=== PATIENT | female | born 1975 | race Caucasian/White ===

== ENCOUNTER 2019-10-15 13:00 | Emergency (ER) | payer OTHER ==
[2019-10-15 13:41] LABS: RAPID STREP SCREEN Negative (Negative)
--- NOTE | 2019-10-15 14:16 | ED Physician Documentation ---
PD HPI PED ILLNESS - Stated complaint Stated Complaint: SORE THROAT - Chief complaint Chief Complaint: Heent - History obtained from History obtained from: Patient - History of Present Illness Timing - onset: Other (44-year-old woman with lupus on hydroxychloroquine presents with a 2-day illness with severe sore throat, left ear pain, fever. Minimal cough. Her grandson was sick earlier this week with confirmed positive strep throat. No shortness of breath. She also has myalgias and low back pain.) Review of Systems Constitutional: reports: Fever, Chills, Myalgias, Fatigue. denies: Weight Loss, Sweats Ears: reports: Ear pain Nose: denies: Rhinorrhea / runny nose Throat: reports: Sore throat GI: denies: Vomiting, Diarrhea PD PAST MEDICAL HISTORY - Present Medications Home Medications: Ambulatory Orders Medication Instructions Recorded Confirmed Amoxicillin 500 mg PO TID #30 capsule 10/15/19 Hydrocodone/Acetaminophen 1 - 2 each PO Q6H PRN #10 tablet 10/15/19 [Hydrocodon-Acetaminophen 5-325] Hydroxychloroquine [Plaquenil] 200 mg PO DAILY 10/15/19 10/15/19 - Allergies Allergies/Adverse Reactions: Allergies Allergy/AdvReac Type Severity Reaction Status Date / Time No Known Drug Allergies Allergy Verified 10/15/19 13:10 PD ED PE NORMAL - Vitals Vital signs reviewed: Yes - General General: Alert and oriented X 3, No acute distress - HEENT HEENT: Other (Left TM is retracted with maxillary sinus tenderness on the left. Oropharynx is mildly red without swelling or exudates, no adenopathy. Supple neck.) - Cardiac Cardiac: RRR, No murmur - Respiratory Respiratory: No respiratory distress, Clear bilaterally - Abdomen Abdomen: Non tender - Back Back: No CVA TTP, No spinal TTP - Derm Derm: Normal color, Warm and dry - Extremities Extremities: No edema, No calf tenderness / cord - Neuro Neuro: Alert and oriented X 3, Normal speech Results - Vitals Vitals: Vital Signs - 24 hr 10/15/19 10/15/19 13:08 14:21 Temperature 37.1 C 36.8 C Heart Rate 87 86 Respiratory 16 18 Rate Blood Pressure 94/67 101/67 O2 Saturation 99 98 Oxygen O2 Source Room air - Labs Labs: Laboratory Tests 10/15/19 13:11 Group A Strep Rapid Negative PD MEDICAL DECISION MAKING - ED course ED course: 44-year-old woman with URI, most consistent with sinusitis and given her online underlying immunocompromised state seems reasonable to administer antibiotics for same. Departure - Departure Disposition: 01 Home, Self Care Clinical Impression: Sinusitis Qualifiers: Sinusitis location: maxillary Chronicity: acute Recurrence: non-recurrent Qualified Code(s): J01.00 - Acute maxillary sinusitis, unspecified Condition: Good Record reviewed to determine appropriate education?: Yes Instructions: ED Sinusitis Abx Tx Prescriptions: Amoxicillin 500 mg PO TID #30 capsule Hydrocodone/Acetaminophen [Hydrocodon-Acetaminophen 5-325] 1 - 2 each PO Q6H PRN #10 tablet PRN Reason: pain Comments: Call your doctor to arrange a follow-up appointment, make the next available appointment. In the interim, return anytime if worse or if new symptoms develop. Do not drink or drive while taking narcotic pain medication. Note that many narcotic pain relievers also contain Tylenol/acetaminophen. Please ensure that your total dose of acetaminophen from all sources does not exceed 3 g (3000 mg) per day. You may get constipated while on this medication. Take a stool softener such as Colace twice a day while you are on it. Also add an [id number] laxative such as senna or MiraLAX on any day that you do not have a bowel movement. If you received a narcotic pain medication or sedative while in the emergency department, do not drive for the next 24 hours. Discharge Date/Time: 10/15/19 14:45
[2019-10-15 14:22] VITALS: BP 101/67
== END 2019-10-15 14:45 | disposition home or self-care (01) ==
LOC: ED 13:00
DX: J01.00 Acute maxillary sinusitis, unspecified (principal)
CPT/HCPCS: 87070; 87077; 87430; 99283; 99284

== ENCOUNTER 2020-09-29 12:30 | Emergency (ER) | payer MEDICAID, OTHER ==
[2020-09-29] MEDS ORDERED: SODIUM CHLORIDE 0.9% 1,000 ML IV STA (13:00)
[2020-09-29] MEDS ORDERED: HYDROmorphone 1 MG/ML CARPUJECT IVP STA (13:00)
--- NOTE | 2020-09-29 13:03 | ED Physician Documentation ---
History of Present Illness - Stated complaint Stated Complaint: LT SHOULDER PX - Chief complaint Chief Complaint: General - Additonal information Additional information: 45-year-old female presents the emergency department for evaluation of acute sharp chest pain that woke her from sleep this morning. It radiates to her posterior back. She reports that she has had similar chest pain in the past with an elevated blood pressure. She has no cough or fevers. No recent illness. she appears very uncomfortable in bed. Denies any hx of CAD, CVA She moved to [facility] about 3 weeks ago from [facility]. While there she reports that they had begun to evaluate her for high blood pressure and she was prescribed a blood pressure medication but took it only for a week before she moved. She also reports a history of lupus for which she was getting injections into the top of her head monthly. Patient endorses daily cannabis. She denies alcohol or drug use otherwise. She denies any unilateral leg swelling, history of blood clots or cancer. Review of Systems Constitutional: denies: Fever, Chills Eyes: reports: Reviewed and negative Ears: reports: Reviewed and negative Nose: reports: Reviewed and negative Throat: reports: Reviewed and negative Cardiac: reports: Chest pain / pressure. denies: Palpitations, Pedal edema, Calf pain Respiratory: denies: Dyspnea, Cough, Hemoptysis GI: denies: Abdominal Pain, Nausea, Vomiting : denies: Dysuria, Frequency, Hesitancy Skin: denies: Rash, Lesions Musculoskeletal: denies: Neck pain, Back pain, Extremity pain Neurologic: denies: Generalized weakness, Focal weakness PD PAST MEDICAL HISTORY - Past Medical History Cardiovascular: Hypertension Respiratory: Pneumonia Neuro: Migraines Endocrine/Autoimmune: Systemic lupus erythematosus GI: None LAB TESTER: None : None HEENT: None Psych: None Musculoskeletal: None Derm: Other - Past Surgical History Past Surgical History: No - Present Medications Home Medications: Ambulatory Orders Medication Instructions Recorded Confirmed Ibuprofen [Motrin] 600 mg PO Q6H PRN #30 tab 09/29/20 - Allergies Allergies/Adverse Reactions: Allergies Allergy/AdvReac Type Severity Reaction Status Date / Time No Known Drug Allergies Allergy Verified 09/29/20 12:41 - Social History Does the pt smoke?: No Smoking Status: Never smoker Does the pt drink ETOH?: No Does the pt have substance abuse?: No - Immunizations Immunizations are current?: Yes - POLST Patient has POLST: No PD ED PE EXPANDED - General General: Alert, In Pain, In distress - Neck Neck: Supple w/out meningeal sx. No: Adenopathy - Cardiac Cardiac: Regular Rate, Regular Rhythm, Radial strong equal, Pedal strong equal, Cap refill < 2 sec. No: Murmur Present - Respiratory Respiratory: Clear to ausultation melodie, Other (pleuritic pain with inspiration). No: Distress, Labored - Abdomen Abdomen: Normal Bowel sounds. No: Tender to palpation - Derm Derm: Normal color, Warm and dry. No: Rash - Extremities Extremities: Normal. No: Deformity, Tenderness, Pedal edema bilateral, Right calf TTP/cord, Left calf TTP/cord - Neuro Neuro: Alert and Oriented X 3, CNII-XII intact - GCS Eye Opening: Spontaneous Motor: Obeys Commands Verbal: Oriented Total: 15 Results - Vitals Vitals: Vital Signs - 24 hr 09/29/20 09/29/20 09/29/20 12:39 14:48 15:26 Temperature 37.0 C Heart Rate 84 86 75 Respiratory 18 25 H 23 Rate Blood Pressure 150/111 H 104/62 100/59 L O2 Saturation 99 100 100 Oxygen O2 Source Room air - EKG (time done) 1248 Rate: Rate (enter#) (73) Rhythm: NSR [place]: Normal Intervals: Normal MT QRS: Normal Ischemia: Normal ST segments Computer interpretation: Agree with computer - Labs Labs: Laboratory Tests 09/29/20 09/29/20 09/29/20 13:05 13:10 13:38 WBC 7.1 RBC 4.17 L Hgb 13.7 Hct 40.2 MCV 96.4 MCH 32.9 H MCHC 34.1 RDW 12.0 Plt Count 225 MPV 11.0 H Neut # (Auto) 3.5 Lymph # (Auto) 2.7 [place] # (Auto) 0.6 Eos # (Auto) 0.2 Baso # (Auto) 0.1 Absolute Nucleated RBC 0.00 Nucleated RBC % 0.0 Sodium 138 Potassium 4.0 Chloride 104 Carbon Dioxide 23 Anion Gap 11.0 BUN 9 Creatinine 0.9 Estimated GFR (MDRD) 67 L Glucose 94 Calcium 9.0 Total Bilirubin 0.2 AST 21 ALT 24 Alkaline Phosphatase 58 Troponin I High Sens Total Protein 7.3 Albumin 4.2 Globulin 3.1 Albumin/Globulin Ratio 1.4 Lipase 32 Serum HCG, Qual Urine Color YELLOW Urine Clarity CLEAR Urine pH 6.0 Ur Specific [place] 1.020 Urine Protein NEGATIVE Urine Glucose (UA) NEGATIVE Urine Ketones NEGATIVE Urine Occult Blood NEGATIVE Urine Nitrite NEGATIVE Urine Bilirubin NEGATIVE Urine Urobilinogen 0.2 (NORMAL) Ur Leukocyte Esterase SMALL H Urine RBC 0-5 Urine WBC 0-3 Ur Squamous Epith Cells FEW Squamous Urine Bacteria Rare Ur Microscopic Review INDICATED Urine Culture Comments INDICATED 09/29/20 09/29/20 13:38 13:38 WBC RBC Hgb Hct MCV MCH MCHC RDW Plt Count MPV Neut # (Auto) Lymph # (Auto) [place] # (Auto) Eos # (Auto) Baso # (Auto) Absolute Nucleated RBC Nucleated RBC % Sodium Potassium Chloride Carbon Dioxide Anion Gap BUN Creatinine Estimated GFR (MDRD) Glucose Calcium Total Bilirubin AST ALT Alkaline Phosphatase Troponin I High Sens < 2.3 L Total Protein Albumin Globulin Albumin/Globulin Ratio Lipase Serum HCG, Qual NEGATIVE Urine Color Urine Clarity Urine pH Ur Specific [place] Urine Protein Urine Glucose (UA) Urine Ketones Urine Occult Blood Urine Nitrite Urine Bilirubin Urine Urobilinogen Ur Leukocyte Esterase Urine RBC Urine WBC Ur Squamous Epith Cells Urine Bacteria Ur Microscopic Review Urine Culture Comments - Rads (name of study) CXR Radiology: Final report received (No acute cardiopulmonary process) CT angio Radiology: Final report received (No evidence of pulmonary embolism. No acute consolidation in the lungs to suggest pneumonia. Thoracic aorta is normal in caliber and enhancement. Esophagus is normal in caliber without hiatal hernia.) PD MEDICAL DECISION MAKING - ED course Complexity details: reviewed results, re-evaluated patient, considered differential, d/w patient ED course: 45-year-old female who moved to [facility] about 3 weeks ago from [facility] and has pre-existing history of hypertension as well as lupus and daily tobacco use presents to the emergency department with acute onset pleuritic chest pain that woke her from sleep about 3 AM. Patient denies any cough or fevers chest pain is not exertional. No abdominal pain nausea or diarrhea. On presentation she appeared uncomfortable and had a pain when taking a deep breath however there was no hypoxia. Cardiopulmonary auscultation was u nremarkable. EKG was nonischemic. EKG is not consistent with pericarditis. High-sensitivity troponin negative. Screening chest x-ray unremarkable. However given history of lupus and pleuritic component of this chest pain we did proceed with a CT pulmonary angio that did not show any findings of a pulmonary embolus, pneumonia or aortic dissection. Otherwise screening labs including a CBC shows no leukocytosis. Preserved renal and liver function. Patient had been given some Dilaudid on presentation with moderate relief of the pain. On reassessment I offered 30 mg of Toradol with offered further relief of pain Laboratory findings and CT imaging was discussed with the patient. This time the etiology of her pleuritic chest pain is not clear though I suspect it stems from untreated lupus. Given marked relief of pain with Toradol I will recommend that she take ibuprofen at home few times a day. I have given her the phone number for [facility] to follow-up this ED visit but have made very clear to her it is imperative she is established with a primary doctor to have long-term management of her lupus. Departure - Departure Disposition: Home, Self Care Clinical Impression: Pleuritic chest pain, Lupus Condition: Critical Instructions: ED Chest Pain Atypical Unkn Cause Follow-Up: [facility] [Provider Group] Prescriptions: Ibuprofen [Motrin] 600 mg PO Q6H PRN #30 tab PRN Reason: Pain Comments: Renae you were seen in the emergency department today for pleuritic chest pain. This is chest pain that is worse when you take a deep breath. Because of your history of lupus we did do an EKG and screening lab. There were no worrisome findings with any of that testing. We also did do a CAT scan of your chest to make sure that there was no blood clot in your lungs. The CAT scan of your chest shows no blood clots, no pneumonia and a normal sized aorta. It is likely that the chest pain you have may be related to uncontrolled lupus. Because you got moderate relief of the chest pain with the Toradol in office I would like you to begin taking ibuprofen with food 2-3 times a day. It is very important that you establish with a primary care doctor for long-term management of your lupus. Please follow-up this emergency department visit at the [facility] on [facility] in [place]. They can reevaluate your symptoms and may be able to assist you in getting a primary doctor. In addition to that calling your insurance provider should be helpful in getting you established with a primary provider. Return to the emergency department with worsening pain, any fainting episodes leg swelling or any other emergent concerns
[2020-09-29 13:14] LABS: BASOPHILS # (AUTO) 0.1 10^3/uL (0.0-0.1); BASOPHILS % (AUTO) 0.8 %; EOSINOPHILS # (AUTO) 0.2 10^3/uL (0.0-0.7); EOSINOPHILS % (AUTO) 3.1 %; HGB - HEMOGLOBIN 13.7 g/dL (12.0-16.0); LYMPHOCYTES # (AUTO) 2.7 10^3/uL (1.5-3.5); LYMPHOCYTES % (AUTO) 37.4 %; MEAN CORPUSCULAR HEMOGLOBIN 32.9 pg (27.0-31.0); MEAN CORPUSCULAR HGB CONC 34.1 g/dL (32.0-36.0); MEAN CORPUSCULAR VOLUME 96.4 fL (81.0-99.0); MONOCYTES # (AUTO) 0.6 10^3/uL (0.0-1.0); NEUTROPHILS # (AUTO) 3.5 10^3/uL (1.5-6.6); NEUTROPHILS % (AUTO) 49.4 %; PLT - PLATELET COUNT 225 10^3/uL (130-450); RED BLOOD COUNT 4.17 10^6/uL (4.20-5.40); WHITE BLOOD COUNT 7.1 x10^3/uL (4.8-10.8)
[2020-09-29 13:31] LABS: BILIRUBIN,URINE NEGATIVE (NEGATIVE); GLUCOSE, URINE (UA) NEGATIVE (NEGATIVE); KETONES,URINE (UA) NEGATIVE (NEGATIVE); LEUKOCYTE ESTERASE, URINE SMALL (NEGATIVE); NITRITE,URINE NEGATIVE (NEGATIVE); OCCULT BLOOD,URINE NEGATIVE (NEGATIVE); PROTEIN,URINE NEGATIVE (NEGATIVE); UROBILINOGEN,URINE 0.2 (NORMAL) E.U./dL (NORMAL)
[2020-09-29 13:33] LABS: CLARITY,URINE CLEAR (CLEAR)
--- NOTE | 2020-09-29 13:34 | XRAY Report ---
PROCEDURE: Chest 1 View X-Ray INDICATIONS: Chest pain TECHNIQUE: One view of the chest was acquired. COMPARISON: None FINDINGS: Surgical changes and devices: None. Lungs and pleura: No pleural effusions or pneumothorax. Lungs are clear. Mediastinum: Mediastinal contours appear normal. Heart size is normal. Bones and chest wall: No suspicious bony lesions. Overlying soft tissues appear unremarkable. IMPRESSION: No acute cardiopulmonary process demonstrated radiographically. Reviewed by: Reza Alas MD on 09/29/2020 12:33 PM [facility] Approved by: Reza Alas MD on 09/29/2020 12:33 PM [facility] Station ID: [id number]
[2020-09-29 13:41] LABS: BACTERIA,URINE Rare /HPF (None Seen); RBC,URINE 0-5 /HPF (0-5); SQUAMOUS EPITHELIAL CELL,UR FEW Squamous (<= Few)
[2020-09-29 13:56] LABS: ALBUMIN 4.2 g/dL (3.2-5.5); ALBUMIN/GLOBULIN RATIO 1.4 (1.0-2.2); BILIRUBIN,TOTAL 0.2 mg/dL (0.2-1.0); CREATININE 0.9 mg/dL (0.4-1.0); TOTAL PROTEIN 7.3 g/dL (6.7-8.2)
[2020-09-29 14:03] LABS: HCG,QUALITATIVE BLOOD NEGATIVE
--- NOTE | 2020-09-29 15:00 | CT Report ---
PROCEDURE: ANGIO CHEST W/WO INDICATIONS: pleuritic chest pain; r/o PE CONTRAST: IV CONTRAST: Optiray 320 ml: 80 PO CONTRAST: *NO PO CONTRAST TECHNIQUE: After the administration of intravenous contrast, 2 mm thick sections acquired from the pulmonary api [place]lando to the posterior costophrenic angles. 3-dimensional maximum intensity projection (MIP) coronal a nd sagittal reformats were then acquired through the thorax. For radiation dose reduction, the follow ing was used: automated exposure control, adjustment of mA and/or kV according to patient size. COMPARISON: Chest x-ray 09/29/2020. FINDINGS: Image quality: Excellent. Pulmonary arteries: Pulmonary arteries are normal in size, and demonstrate no intraluminal filling d efects to suggest central pulmonary embolism. Lungs and pleura: There is mild dependent atelectasis. Mild paraseptal emphysematous changes are pres ent. No focal consolidation. There is a calcified right upper lobe nodule consistent with sequelae of old granulomatous disease. No pleural effusions or pneumothorax. Central and peripheral airways are patent. Mediastinum: Heart size is mildly enlarged, without pericardial effusion. No mediastinal or hilar a denopathy. Thoracic aorta is normal in caliber and enhancement. Esophagus is normal in caliber, wit hout hiatal hernia. Bones and chest wall: No suspicious bony lesions. Ribs and thoracic spine appear intact throughout. No axillary or supraclavicular adenopathy. Abdomen: Visualized upper abdominal solid organs appear normal in the early arterial phase of enhanc ement. IMPRESSION: 1. No evidence of pulmonary embolism. 2. No acute consolidation the lungs to suggest pneumonia. Reviewed by: Josh Muhammad MD on 09/29/2020 2:59 PM PST Approved by: Josh Muhammad MD on 09/29/2020 2:59 PM PST Station ID: [id number]
[2020-09-29] MEDS ORDERED: IOVERSOL 320 100 ML VIAL IVP ONE (15:16)
[2020-09-29] MEDS ORDERED: KETOROLAC 30 MG/ML VIAL IVP STA (15:20)
[2020-09-29 15:27] VITALS: BP 100/59
== END 2020-09-29 16:09 | disposition home or self-care (01) ==
LOC: ED 12:30
DX: R07.9 Chest pain, unspecified (principal); M32.9 Systemic lupus erythematosus, unspecified; I10 Essential (primary) hypertension; F17.200 Nicotine dependence, unspecified, uncomplicated
CPT/HCPCS: 36415; 71045; 71275; 80053; 81001; 83690; 84484; 84703; 85025; 87086; 93005; 96374; 96375; 99283; 99284; J1170; Q9967; 81003

== ENCOUNTER 2021-08-13 11:27 | Emergency (ER) | payer MEDICAID ==
--- NOTE | 2021-08-13 13:30 | ED Physician Documentation ---
PD HPI URI - Stated complaint Stated Complaint: C+ IN CAR [phone] - Chief complaint Chief Complaint: Resp - History obtained from History obtained from: Patient - History of Present Illness Timing - onset: Yesterday Timing duration: Days (2) Timing details: Abrupt onset, Still present Associated symptoms: Chills, Nasal congestion, Sore throat Contributing factors: Sick contact (covid exposure 6-7 days ago (did not know it then but person told her ysterday that they tested positive.). No: Unimmunized Similar symptoms before: Has not had sx before Recently seen: Not recently seen Review of Systems Constitutional: reports: Fever, Chills, Myalgias Nose: reports: Congestion Throat: reports: Sore throat Respiratory: reports: Dyspnea. denies: Cough GI: denies: Nausea, Vomiting, Diarrhea Skin: denies: Rash, Lesions Neurologic: denies: Altered mental status, Headache PD PAST MEDICAL HISTORY - Past Medical History Cardiovascular: Hypertension Respiratory: Pneumonia Neuro: Migraines Endocrine/Autoimmune: Systemic lupus erythematosus GI: None DISEASE MANAGEMENT NURSE: None : None HEENT: None Psych: None Musculoskeletal: None Derm: Other - Past Surgical History Past Surgical History: No - Present Medications Home Medications: Ambulatory Orders Medication Instructions Recorded Confirmed Ibuprofen [Motrin] 600 mg PO Q6H PRN #30 tab 09/29/20 Albuterol Sulf [Ventolin Hfa 2 - 3 puffs INH Q4HR PRN #1 inhaler 08/13/21 Inhaler] - Allergies Allergies/Adverse Reactions: Allergies Allergy/AdvReac Type Severity Reaction Status Date / Time No Known Drug Allergies Allergy Verified 09/29/20 12:41 - Social History Does the pt smoke?: No Smoking Status: Never smoker Does the pt drink ETOH?: No Does the pt have substance abuse?: No - Immunizations Immunizations are current?: Yes - POLST Patient has POLST: No PD ED PE NORMAL - Vitals Vital signs reviewed: Yes - General General: Alert and oriented X 3, No acute distress, Well developed/nourished - HEENT HEENT: Ears normal, Pharynx benign - Neck Neck: Supple, no meningeal sign, No adenopathy - Cardiac Cardiac: RRR, No murmur - Respiratory Respiratory: Clear bilaterally - Derm Derm: Normal color, Warm and dry - Neuro Neuro: Alert and oriented X 3, No motor deficit, Normal speech Results - Vitals Vitals: Oxygen O2 Source Room air - Labs Labs: Laboratory Tests 08/13/21 13:46 Coronavirus (PCR) NEGATIVE PD MEDICAL DECISION MAKING - ED course Complexity details: considered differential (seems URI and can do COVID test. ), d/w patient Departure - Departure Disposition: 01 Home, Self Care Clinical Impression: Exposure to COVID-19 virus Upper respiratory infection Qualifiers: URI type: unspecified URI Qualified Code(s): J06.9 - Acute upper respiratory infection, unspecified Condition: Stable Record reviewed to determine appropriate education?: Yes Instructions: ED URI Viral W Wheezing Prescriptions: Albuterol Sulf [Ventolin Hfa Inhaler] 2 - 3 puffs INH Q4HR PRN #1 inhaler PRN Reason: Shortness Of Air/Wheezing Comments: You could use an albuterol inhaler 2 to 3 puffs every 4-6 hours regularly for the next few days to week and then extra times if needed to help with wheezing and shortness of breath. Return if worsening symptoms generally. You have a Covid test pending. You need to self quarantine until the result is done and negative. Do not leave your house. Do not get near anybody. The results should be done in 48 to 72 hours, but sometimes longer. We will call with a positive result, the fastest way to get a negative result for confirma tion though is to go to the hospital website at [email or web address], click on the my [facility] tab and sign up for the patient portal. If any friends or family get sick and would like to have a Covid test done, but do not have signs or symptoms that would necessitate being hospitalized, we encourage testing throughone of the local pharmacies or the Health Department. Call them to schedule an appointment. I transmitted your prescription to [facility] pharmacy. Discharge Date/Time: 08/13/21 14:24
[2021-08-13 13:56] VITALS: BP 125/76
== END 2021-08-13 14:24 | disposition home or self-care (01) ==
LOC: ED 11:27
DX: J06.9 Acute upper respiratory infection, unspecified (principal); Z20.822 Contact with and (suspected) exposure to COVID-19
CPT/HCPCS: 99283

== ENCOUNTER 2021-08-24 12:20 | Emergency (ER) | payer MEDICAID ==
[2021-08-24 13:03] LABS: BILIRUBIN,URINE NEGATIVE (NEGATIVE); GLUCOSE, URINE (UA) NEGATIVE (NEGATIVE); KETONES,URINE (UA) NEGATIVE (NEGATIVE); LEUKOCYTE ESTERASE, URINE SMALL (NEGATIVE); NITRITE,URINE NEGATIVE (NEGATIVE); OCCULT BLOOD,URINE NEGATIVE (NEGATIVE); PH,URINE 6.5 PH (5.0-7.5); PROTEIN,URINE NEGATIVE (NEGATIVE); UROBILINOGEN,URINE 0.2 (NORMAL) E.U./dL (NORMAL)
[2021-08-24 13:16] LABS: ALBUMIN 4.5 g/dL (3.2-5.5); ALBUMIN/GLOBULIN RATIO 1.3 (1.0-2.2); BILIRUBIN,TOTAL 0.6 mg/dL (0.2-1.0); CALCIUM 9.3 mg/dL (8.5-10.3); POTASSIUM 3.7 mmol/L (3.5-5.0); TOTAL PROTEIN 7.9 g/dL (6.7-8.2)
[2021-08-24 13:20] LABS: BASOPHILS % (AUTO) 0.5 %; EOSINOPHILS # (AUTO) 0.2 10^3/uL (0.0-0.7); EOSINOPHILS % (AUTO) 2.7 %; HCT - HEMATOCRIT 38.5 % (37.0-47.0); HGB - HEMOGLOBIN 13.2 g/dL (12.0-16.0); LYMPHOCYTES # (AUTO) 3.1 10^3/uL (1.5-3.5); LYMPHOCYTES % (AUTO) 42.1 %; MEAN CORPUSCULAR HEMOGLOBIN 32.6 pg (27.0-31.0); MEAN CORPUSCULAR HGB CONC 34.3 g/dL (32.0-36.0); MEAN CORPUSCULAR VOLUME 95.1 fL (81.0-99.0); MEAN PLATELET VOLUME 10.7 fL (7.9-10.8); MONOCYTES # (AUTO) 0.5 10^3/uL (0.0-1.0); MONOCYTES % (AUTO) 7.1 %; NEUTROPHILS # (AUTO) 3.5 10^3/uL (1.5-6.6); NEUTROPHILS % (AUTO) 47.3 %; PLT - PLATELET COUNT 238 10^3/uL (130-450); RED BLOOD COUNT 4.05 10^6/uL (4.20-5.40); RED CELL DISTRIBUTION WIDTH 11.9 % (12.0-15.0); WHITE BLOOD COUNT 7.3 x10^3/uL (4.8-10.8)
[2021-08-24 13:22] LABS: CLARITY,URINE CLEAR (CLEAR); RBC,URINE None Seen /HPF (0-5); SQUAMOUS EPITHELIAL CELL,UR RARE Squamous (<= Few); WBC,URINE 0-3 /HPF (0-5)
[2021-08-24 13:23] LABS: BACTERIA,URINE None Seen /HPF (None Seen)
[2021-08-24 14:52] VITALS: BP 134/74
--- NOTE | 2021-08-24 15:08 | ED Physician Documentation ---
History of Present Illness - Stated complaint Stated Complaint: LOWER BACK PX - Chief complaint Chief Complaint: Abd Pain - History obtained from History obtained from: Patient - History of Present Illness Timing: How many days ago (4) Pain level max: 8 Pain level now: 6 - Additonal information Additional information: Patient is a 46-year-old female who presents to the emergency department left lower back pain. This been ongoing for the past 4 days. Worse with movement, better with rest. Has not taken anything for this. Does not recall any injury. No loss of bowel or bladder control. Does not use IV drugs. No fevers. No chills. No trauma. Review of Systems Constitutional: denies: Fever, Chills GI: denies: Nausea, Vomiting, Diarrhea Skin: denies: Rash Musculoskeletal: denies: Neck pain, Back pain Neurologic: denies: Headache PD PAST MEDICAL HISTORY - Past Medical History Cardiovascular: Hypertension Respiratory: Pneumonia Neuro: Migraines Endocrine/Autoimmune: Systemic lupus erythematosus GI: None CASH ACCOUNTANT: None : None HEENT: None Psych: None Musculoskeletal: None Derm: Other - Past Surgical History Past Surgical History: No - Present Medications Home Medications: Ambulatory Orders Medication Instructions Recorded Confirmed Ibuprofen [Motrin] 600 mg PO Q6H PRN #30 tab 09/29/20 Albuterol Sulf [Ventolin Hfa 2 - 3 puffs INH Q4HR PRN #1 inhaler 08/13/21 Inhaler] Meloxicam [Mobic] 15 mg PO DAILY PRN #20 tablet 08/24/21 methocarbamoL [Robaxin] 500 mg PO Q6H PRN #20 tablet 08/24/21 methylPREDNISolone [Medrol] 4 mg PO DAILY #1 tab 08/24/21 - Allergies Allergies/Adverse Reactions: Allergies Allergy/AdvReac Type Severity Reaction Status Date / Time No Known Drug Allergies Allergy Verified 08/24/21 12:43 - Social History Does the pt smoke?: No Smoking Status: Never smoker Does the pt drink ETOH?: No Does the pt have substance abuse?: No - Immunizations Immunizations are current?: Yes - POLST Patient has POLST: No PD ED PE NORMAL - Vitals Vital signs reviewed: Yes - General General: Alert and oriented X 3, No acute distress - HEENT HEENT: Moist mucous membranes - Neck Neck: Supple, no meningeal sign - Cardiac Cardiac: RRR - Respiratory Respiratory: No respiratory distress - Back Back: No spinal TTP (No midline tenderness palpation or percussion. Tender palpation over the left sacroiliac joint. Reproduces her pain. Mild paraspinal tenderness left lower lumbar.) - Derm Derm: Warm and dry - Extremities Extremities: Other (Normal bilateral lower extremity patellar and ankle jerk reflexes. Normal great toe extension bilaterally. no saddle anesthesia) - Neuro Neuro: Alert and oriented X 3 - Psych Psych: Normal mood, Normal affect Results - Vitals Vitals: Vital Signs - 24 hr 08/24/21 08/24/21 12:43 14:51 Temperature 36.5 C 36.6 C Heart Rate 84 74 Respiratory 18 14 Rate Blood Pressure 125/71 134/74 H O2 Saturation 96 98 Oxygen O2 Source Room air - Labs Labs: Laboratory Tests 08/24/21 08/24/21 08/24/21 12:58 12:58 12:58 WBC 7.3 RBC 4.05 L Hgb 13.2 Hct 38.5 MCV 95.1 MCH 32.6 H MCHC 34.3 RDW 11.9 L Plt Count 238 MPV 10.7 Neut # (Auto) 3.5 Lymph # (Auto) 3.1 [place] # (Auto) 0.5 Eos # (Auto) 0.2 Baso # (Auto) 0.0 Absolute Nucleated RBC 0.00 Nucleated RBC % 0.0 Sodium 138 Potassium 3.7 Chloride 105 Carbon Dioxide 23 Anion Gap 10.0 BUN 9 Creatinine 1.0 Estimated GFR (MDRD) 59 L Glucose 92 Calcium 9.3 Total Bilirubin 0.6 AST 25 ALT 29 Alkaline Phosphatase 53 Total Protein 7.9 Albumin 4.5 Globulin 3.4 Albumin/Globulin Ratio 1.3 Lipase 27 Urine Color YELLOW Urine Clarity CLEAR Urine pH 6.5 Ur Specific [place] 1.020 Urine Protein NEGATIVE Urine Glucose (UA) NEGATIVE Urine Ketones NEGATIVE Urine Occult Blood NEGATIVE Urine Nitrite NEGATIVE Urine Bilirubin NEGATIVE Urine Urobilinogen 0.2 (NORMAL) Ur Leukocyte Esterase SMALL H Urine RBC None Seen Urine WBC 0-3 Ur Squamous Epith Cells RARE Squamous Urine Bacteria None Seen Ur Microscopic Review INDICATED Urine Culture Comments INDICATED PD MEDICAL DECISION MAKING - ED course Complexity details: reviewed results, re-evaluated patient, considered differential, d/w patient ED course: With what appears to be sacroiliitis. I will place on anti-inflammatories and steroids. We will have her follow-up with her doctor for further care. No evidence of cauda equina, epidural abscess. No evidence of sciatica. Patient counseled regarding signs and symptoms for which I believe and urgent re- evaluation would be necessary. Patient with good understanding of and agreement to plan and is comfortable going home at this time This document was made in part using voice recognition software. While efforts are made to proofread this document, sound alike and grammatical errors may occur. Departure - Departure Disposition: 01 Home, Self Care Clinical Impression: Sacroiliitis Condition: Good Instructions: ED Sacroiliitis Follow-Up: your,doctor in 1 week [Other] Prescriptions: methylPREDNISolone [Medrol] 4 mg PO DAILY #1 tab Meloxicam [Mobic] 15 mg PO DAILY PRN #20 tablet PRN Reason: pain methocarbamoL [Robaxin] 500 mg PO Q6H PRN #20 tablet PRN Reason: muscle spasm Comments: Please follow-up with your doctor as needed for further care. Return if you worsen. Your prescriptions were sent to [facility] in [place]. Discharge Date/Time: 08/24/21 15:28
== END 2021-08-24 15:28 | disposition home or self-care (01) ==
LOC: ED 12:20
DX: M46.1 Sacroiliitis, not elsewhere classified (principal)
CPT/HCPCS: 36415; 80053; 81001; 81003; 83690; 85025; 87086; 99283